=== PATIENT | male | born 1965 | race Caucasian/White ===

== ENCOUNTER 2016-07-09 06:31 | Emergency (ER) | payer OTHER ==
[~2016-07-09] VITALS: Ht 182.9 cm; Wt 91.5 kg
[~2016-07-09 06:31] MED LIST: BACTRIM,SEPT1 TABLET PO; FLEXERIL10 MG; HUMULIN R100 UNITS/ IM; HYDROCODON-ACE1 EAC7 PO; KEFLEX500 MG PO; LANTUS (UNITS)1 UNIT IV; LANTUS 10100 UNITS/ SC; MOTRIN600 MG PO; NAPROSYN500 MG PO; PERCOCET 5/31 TABLET PO; ULTRAM50 MG PO
[2016-07-09 08:13] LABS: EOSINOPHIL (%) 2.9 % (0-5); EOSINOPHIL COUNT 0.2 K/uL (0-0.3); HEMATOCRIT 42.1 % (38.0-50.0); IMMATURE GRANULOCYTE (%) 0.3 % (0.0-0.7); INSTRUMENT ABS NEUTROPHIL CT 3.1 K/uL; LYMPHOCYTE COUNT 2.2 K/uL (1.0-2.8); MCH 30.4 PG (29.0-34.0); MCHC 33.3 G/DL (30.0-36.0); MCV 91.3 FL (86-99); MEAN PLAT.VOLUME 8.8 uM^3 (9.0-12.4); MONOCYTE (%) 10.1 % (3-12); MONOCYTE COUNT 0.6 K/uL (0-0.8); NEUTROPHIL COUNT 3.1 K/uL (1.8-6.4); PLATELET COUNT 167 K/uL (156-360); RBC DIS.WIDTH-CV 13.9 % (11.8-14.6); RBC DIS.WIDTH-SD 46.8 % (39-53); RED BLOOD COUNT 4.61 M/uL (4.00-5.50); WHITE BLOOD COUNT 6.2 K/uL (4.1-10.2)
[2016-07-09 08:51] LABS: ANION GAP 9 MEQ/L (2-14); CHLORIDE 103 MEQ/L (99-109); POTASSIUM 3.7 MEQ/L (3.7-5.4); SAMPLE HEMOLYSIS CHECK 0; SAMPLE ICTERIC CHECK 0; SAMPLE LIPEMIA CHECK 0; SODIUM 138 MEQ/L (136-147)
[2016-07-09 08:57] LABS: GFR ESTIMATE (CALCULATED) > 59 mL/min/; GLUCOSE 195 mg/dL (70-99); SERUM ETHYL ALCOHOL 268 mg/dL; UREA NITROGEN (BUN) 8 mg/dL (9-23)
[2016-07-09 09:09] LABS: ADD MIUA? YES; BILIRUBIN NEGATIVE; BLOOD SMALL; COLOR STRAW ((YELLOW)); GLUCOSE (STRIP) 150; KETONES NEGATIVE; LEUKOCYTES NEGATIVE; NITRITE NEGATIVE; PROTEIN (STRIP) NEGATIVE; SPECIFIC GRAVITY 1.017 (1.000-1.030); UROBILINOGEN 0.2 MG/DL (0.2-1.0)
[2016-07-09 09:23] LABS: BACTERIA NONE SEEN /HPF; EPITHELIAL CELLS NONE SEEN /HPF; HYALINE CASTS 0-5 /LPF; MUCUS NONE SEEN /LPF; RED BLOOD CELLS 0-5 /HPF (0-5); WHITE BLOOD CELLS 0-5 /HPF (0-5)
[2016-07-09] MEDS ORDERED: LEVAQUIN750 MG PO (13:08)
[2016-07-09] MEDS ORDERED: MOTRIN800 MG PO (13:08)
[2016-07-09 15:58] VITALS: BP 119/77
== END 2016-07-09 15:59 | disposition home or self-care (01) ==
LOC: TRA → EME 06:31 → TRA 06:31
PROVIDERS: Emergency Medicine
PROC: 3E0234Z Introduction of Serum, Toxoid and Vaccine into Muscle, Percutaneous Approach (ICD-10-PCS; principal; 2016-07-09)
DX: S90.32XA Contusion of left foot, initial encounter (principal); M54.2 Cervicalgia; M54.9 Dorsalgia, unspecified; M25.552 Pain in left hip; V28.4XXA Motorcycle driver injured in noncollision transport accident in traffic accident, initial encounter; M25.572 Pain in left ankle and joints of left foot; T14.8 Other injury of unspecified body region; J18.9 Pneumonia, unspecified organism; F10.129 Alcohol abuse with intoxication, unspecified; E11.9 Type 2 diabetes mellitus without complications; J44.9 Chronic obstructive pulmonary disease, unspecified; F17.200 Nicotine dependence, unspecified, uncomplicated
CPT/HCPCS: 70450; 71260; 72125; 72128; 72129; 72131; 72132; 73502; 73610; 73630; 74177; 80048; 81003; 85025; 99281; 99285; G0480; J0456; J0696; J1885; J2270; J7030; J7050

== ENCOUNTER 2017-07-08 22:23 | Emergency (ER) | payer OTHER ==
[~2017-07-08] VITALS: Ht 185.4 cm; Wt 98.7 kg
[~2017-07-08 22:23] MED LIST changes: +LEVAQUIN750 MG PO; +MOTRIN800 MG PO
[2017-07-09 02:38] VITALS: BP 173/80
== END 2017-07-09 02:38 | disposition home or self-care (01) ==
LOC: EME 22:23
DX: M54.5 Low back pain (principal); S60.011A Contusion of right thumb without damage to nail, initial encounter; T14.8XXA Other injury of unspecified body region, initial encounter; W18.39XA Other fall on same level, initial encounter; M43.16 Spondylolisthesis, lumbar region; M51.37 Other intervertebral disc degeneration, lumbosacral region; E11.9 Type 2 diabetes mellitus without complications; F17.200 Nicotine dependence, unspecified, uncomplicated; Z88.8 Allergy status to other drugs, medicaments and biological substances; Z91.018 Allergy to other foods
CPT/HCPCS: 72100; 73130; 99281; 99284